=== PATIENT | female | born 1970 | race Caucasian/White ===

== ENCOUNTER 2019-12-31 09:08 | Emergency (ER) | payer MEDICAID ==
[2019-12-31 09:21] VITALS: BP 136/37
--- NOTE | 2019-12-31 10:08 | UC ---
General HPI - HPI Summary HPI Summary: The patient is a 49-year-old female that recently moved to the area. She has a history of hypertension, diabetes, Princess's thyroiditis. She is currently out of all her meds and requests refills. She is not complaining of any headache chest pain or shortness of breath. - History of Current Complaint Chief Complaint: UCMedRefill Stated Complaint: MEDICINE REFILLS Time Seen by Provider: 12/31/19 09:45 Hx Obtained From: Patient Hx From Patient Unobtainable Due To: Dementia Hx Last Menstrual Period: 12/20/19 Onset/Duration: Other - NA Onset Severity: Mild Current Severity: None Pain Intensity: 0 Associated Signs & Symptoms: Negative: Agitation, Abdominal Pain, Anticoagulation Therapy, Back Pain, Confusion, Cough, Chest Pain, Decreased Responsiveness, Dizziness, Diarrhea, Dysuria, Decreased Oral Intake, Diaphoresis , Edema, Fever, Headache, Hematemesis, Hemoptysis, Immunocompromised, In- Dwelling Medication Device, Melena, Nausea, Palpitations, Syncope, SOB, Trauma, Vomiting, Wheezing, Weakness - Allergy/Home Medications Allergies/Adverse Reactions: Allergies Allergy/AdvReac Type Severity Reaction Status Date / Time MS Codeine [Codeine] Allergy Hallucinati Verified 12/28/15 10:24 ons Home Medications: Home Medications Fexofenadine (NF) [Kathi 180 (NF)] 1 tab PO DAILY 12/31/19 [History Confirmed 12/31/19] Fexofenadine (NF) [Kathi 180 (NF)] 180 mg PO DAILY #30 tab 12/31/19 [Rx] Levothyroxine TAB* [Synthroid TAB*] 125 mcg PO 0800 12/31/19 [History Confirmed 12/31/19] Levothyroxine TAB* [Synthroid TAB*] 125 mcg PO DAILY #30 tab 12/31/19 [Rx] Lisinopril TAB* [Prinivil TAB 10 MG*] 20 mg PO DAILY 12/31/19 [History Confirmed 12/31/19] Mometasone/Formoter 100/5 MDI* [Dulera 100/5 MDI*] 1 puff INH DAILY 12/31/19 [ History Confirmed 12/31/19] Mometasone/Formoter 100/5 MDI* [Dulera 100/5 MDI*] 1 puff INH DAILY #1 mdi 12/31 [Rx] Montelukast Sodium TAB* [Singulair 10 MG TAB*] 1 tab PO DAILY 12/31/19 [History Confirmed 12/31/19] Montelukast Sodium TAB* [Singulair TAB*] 10 mg PO DAILY #30 tab 12/31/19 [Rx] Omeprazole 1 tab PO DAILY 12/31/19 [History Confirmed 12/31/19] Omeprazole 20 mg PO DAILY #30 capsule. 12/31/19 [Rx] lisinopriL [Lisinopril] 20 mg PO DAILY #30 tablet 12/31/19 [Rx] metFORMIN* [Glucophage 500 MG TAB *] 2,000 mg PO BEDTIME 12/31/19 [History Confirmed 12/31/19] metFORMIN* [Glucophage 500 MG TAB *] 2,000 mg PO DAILY #120 tab 12/31/19 [Rx] PMH/Surg Hx/FS Hx/Imm Hx Previously Healthy: Yes Endocrine History: Diabetes, Thyroid Disease Cardiovascular History: Hypertension Respiratory History: COPD, Bronchitis - Surgical History Surgical History: Yes Surgery Procedure, Year, and Place: ligia,csec - Family History Known Family History: Positive: Unknown - adopted - Social History Alcohol Use: None Substance Use Type: Marijuana Smoking Status (MU): Heavy Every Day Tobacco Smoker Review of Systems All Other Systems Reviewed And Are Negative: Yes Constitutional: Positive: Negative Skin: Positive: Negative Eyes: Positive: Negative ENT: Positive: Negative Respiratory: Positive: Negative Cardiovascular: Positive: Negative Gastrointestinal: Positive: Negative Genitourinary: Positive: Negative Motor: Positive: Negative Neurovascular: Positive: Negative Musculoskeletal: Positive: Negative Neurological/Mental Status: Positive: Negative Psychological: Positive: Negative Physical Exam Triage Information Reviewed: Yes Appearance: Well-Appearing, No Pain Distress, Well-Nourished Vital Signs: Initial Vital Signs Temp 98 F 12/31/19 09:17 Pulse 91 12/31/19 09:17 Resp 18 12/31/19 09:17 BP 136/37 12/31/19 09:17 Pulse Ox 98 12/31/19 09:17 Vital Signs Reviewed: Yes Eyes: Positive: Conjunctiva Clear ENT: Negative: Hearing grossly normal, Nasal congestion, Nasal drainage, Tonsillar exudate, Trismus, Muffled voice, Hoarse voice Dental Exam: Normal Neck: Positive: Supple, Nontender, No Lymphadenopathy Respiratory Exam: Normal Respiratory: Positive: Lungs clear, Normal breath sounds, No respiratory distress, No accessory muscle use Cardiovascular: Positive: RRR, No Murmur Musculoskeletal: Positive: ROM Intact, No Edema Neurological: Positive: Alert Psychological Exam: Normal Skin Exam: Normal Course/Dx - Diagnoses Provider Diagnosis: Encounter for medication refill Discharge ED - Sign-Out/Discharge Documenting (check all that apply): Patient Departure All imaging exams completed and their final reports reviewed: No Studies - Discharge Plan Condition: Stable Disposition: HOME Prescriptions: Fexofenadine (NF) [Kathi 180 (NF)] 180 mg PO DAILY #30 tab Levothyroxine TAB* [Synthroid TAB*] 125 mcg PO DAILY #30 tab lisinopriL [Lisinopril] 20 mg PO DAILY #30 tablet metFORMIN* [Glucophage 500 MG TAB *] 2,000 mg PO DAILY #120 tab Mometasone/Formoter 100/5 MDI* [Dulera 100/5 MDI*] 1 puff INH DAILY #1 mdi Montelukast Sodium TAB* [Singulair TAB*] 10 mg PO DAILY #30 tab Omeprazole 20 mg PO DAILY #30 capsule. Referrals: [facility] [Outside] - As Soon As Possible - Billing Disposition and Condition Condition: STABLE Disposition: Home
== END 2019-12-31 10:05 | disposition home or self-care (01) ==
LOC: UCEAST 09:08
DX: Z76.0 Encounter for issue of repeat prescription (principal); I10 Essential (primary) hypertension; E11.9 Type 2 diabetes mellitus without complications; E06.3 Autoimmune thyroiditis; J44.9 Chronic obstructive pulmonary disease, unspecified; F17.290 Nicotine dependence, other tobacco product, uncomplicated; Z79.890 Hormone replacement therapy; Z79.84 Long term (current) use of oral hypoglycemic drugs; Z79.899 Other long term (current) drug therapy
CPT/HCPCS: 99202; G0463